=== PATIENT | female | born 1980 | race Hispanic/Latino ===

== ENCOUNTER 2017-07-02 14:05 | Emergency (ER) | payer BC ==
[2017-07-02 14:34] VITALS: BMI 21.4
[2017-07-02 14:38] VITALS: RESP 19; TEMP 98.1; O2SAT 99
--- NOTE | 2017-07-02 15:11 | ED PDOC ---
Arrival/HPI - General Chief Complaint: Abdominal Pain Time Seen by Provider: 07/02/17 14:57 Historian: Patient - History of Present Illness Narrative History of Present Illness (Text): 07/02/17 14:59 A 37 year old female with presents to the emergency department complaining of chronic complaints since delivering 3rd child 6 months ago. She reports that since that time she has had episodes of urinary incontinence when straining. She also feels like "feels like something is falling out", described as her bladder feels like it is sinking down. She reports that today she saw blood when wiping after urinating so she came to the ED. She reports frequency and hesistancy today. She is also complaining of conjunctival injection to L eye after scratching it [place]. Denies abdominal pain. Denies flank pain. Patient denies any fever, chills, nausea, vomiting, diarrhea, dysuria, back pain, chest pain, shortness of breath or any other complaints. 07/02/17 20:48 Time/Duration: Other (few months) Symptom Course: Unchanged Quality: Other Context: Home Past Medical History - Provider Review Nursing Documentation Reviewed: Yes - Infectious Disease Hx of Infectious Diseases: None - Tetanus Immunization Tetanus Immunization: Unknown - Past Medical History Past Medical History: No Previous - Cardiac Hx Cardiac Disorders: No - Pulmonary Hx Respiratory Disorders: No - Neurological Hx Neurological Disorder: No - HEENT Hx HEENT Disorder: No - Renal Hx Renal Disorder: No - Endocrine/Metabolic Hx Endocrine Disorders: No - Hematological/Oncological Hx Blood Disorders: No - Integumentary Hx Dermatological Disorder: No - Musculoskeletal/Rheumatological Hx Musculoskeletal Disorders: Yes Hx Falls: Yes - Gastrointestinal Hx Bowel Surgery: No - Genitourinary/Gynecological Hx Genitourinary Disorders: Yes Other/Comment: 2 X Ectopic - Psychiatric Hx Anxiety: Yes Hx Physical Abuse: No Hx Substance Use: Yes - Surgical History Hx Section: Yes (3x) Other/Comment: Ectopic - Anesthesia Hx Anesthesia: Yes Hx Anesthesia Reactions: No Hx Malignant Hyperthermia: No - Suicidal Assessment Feels Threatened In Home Enviroment: No Family/Social History - Physician Review Nursing Documentation Reviewed: Yes Family/Social History: No Known Family HX Smoking Status: Current Some Days Smoker Hx Alcohol Use: No Hx Substance Use: Yes Substance used: weed Hx Substance Use Treatment: No Allergies/Home Meds Allergies/Adverse Reactions: Allergies pcn Allergy (Uncoded 07/02/17 14:34) RASH Home Medications: Home Meds Medication Instructions Recorded Confirmed clonazePAM [Klonopin] 0 mg PO TID 07/02/17 07/02/17 Review of Systems - Physician Review All systems were reviewed & negative as marked: Yes - Review of Systems Constitutional: absent: Fevers, Night Sweats Eyes: Eye Pain. absent: Vision Changes, Photophobia Respiratory: absent: SOB Cardiovascular: absent: Chest Pain Gastrointestinal: absent: Abdominal Pain, Diarrhea, Nausea, Vomiting Genitourinary Female: Frequency, Hematuria, Urine Output Changes, Other ( urinary incontinence (occasional and chronic)). absent: Dysuria, Vaginal Bleeding Musculoskeletal: absent: Arthralgias, Back Pain Neurological: absent: Headache Physical Exam Vital Signs Reviewed: Yes Vital Signs Temp Pulse Resp BP Pulse Ox 07/02/17 19:24 67 19 131/78 99 07/02/17 14:37 98.1 F 73 19 117/78 99 Temperature: Afebrile Blood Pressure: Normal Pulse: Regular Respiratory Rate: Normal Appearance: Positive for: Well-Appearing, Non-Toxic, Comfortable Pain Distress: None Mental Status: Positive for: Alert and Oriented X 3 - Systems Exam Head: Present: Atraumatic, Normocephalic Pupils: Present: PERRL Extroacular Muscles: Present: EOMI Conjunctiva: Present: Injected (L), Other (fluorscein stain positive for corneal abrasion at 3 and 9 oclock) Mouth: Present: Moist Mucous Membranes Neck: Present: Normal Range of Motion Respiratory/Chest: Present: Clear to Auscultation, Good Air Exchange. No: Respiratory Distress, Accessory Muscle Use Cardiovascular: Present: Regular Rate and Rhythm, Normal S1, S2. No: Murmurs Abdomen: Present: Normal Bowel Sounds. No: Tenderness, Distention, Peritoneal Signs Back: Present: Normal Inspection Upper Extremity: Present: Normal Inspection. No: Cyanosis, Edema Lower Extremity: Present: Normal Inspection. No: Edema Neurological: Present: GCS=15, CN II-XII Intact, Speech Normal Skin: Present: Warm, Dry, Normal Color. No: Rashes Psychiatric: Present: Alert, Oriented x 3, Normal Insight, Normal Concentration Medical Decision Making ED Course and Treatment: 07/02/17 14:59 Impression: A 37 year old female with urinary incontinence and suprapubic discomfort. Patient notes "feeling like something is falling out". New complaint of hesistancy and frequency and hematuria. Corneal abrasion on exam. Differential Diagnosis included but are not limited to: Bladder prolapse vs. vs uti Plan: -- Pelvis ultrasound -- Urinalysis -- Reassess and disposition Progress Notes: Report Date : 07/02/2017 17:17:39 Procedure: Pelvis ultrasound Dictator : LUIS MONDRAGON MD IMPRESSION: Unremarkable examination. No sonographic evidence of bladder prolapse. 07/02/17 17:19 UA shows leukocytes, nitrates, wbc and rbcs. Poc negative. Symptoms more consistent with uti but due to rbcs would r/o renal colic. Patient denies abdominal pain, flank pain, fever, or any pain. Patient refusing to stay for labs or CT and reports that she will return with any worsening symptoms. Will dc with antibiotics and drops for corneal abrasion. Instructed not to wear contacts. Spoke to patient at length about importance of following up with PMD for chronic complaints since childbirth to evaluate further. - Lab Interpretations Lab Results: Lab Results 07/02/17 15:20: Urine Color Yellow, Urine Appearance Sl cloudy, Urine pH 5.5, Ur Specific Christiana >= 1.030, Urine Protein >=300 H, Urine Glucose (UA) Negative , Urine Ketones Trace H, Urine Blood Large H, Urine Nitrate Positive H, Urine Bilirubin Moderate H, Urine Urobilinogen 1.0 H, Ur Leukocyte Esterase Small H, Urine RBC Tntc, Urine WBC Tntc, Ur Epithelial Cells 6 - 8, Urine Bacteria Many - RAD Interpretation Radiology Orders: 07/02/17 14:58 Bladder [PELVIS ULTRASOUND] [US] Routine 07/02/17 17:41 ABD & PELVIS W/O PO OR IV CONT [CT] Stat - Medication Orders Current Medication Orders: Discontinued Medications Nitrofurantoin Macrocrystals (Macrobid) 100 mg PO STAT STA Stop: 07/02/17 17:26 Last Admin: 07/02/17 19:00 Dose: 100 mg - Scribe Statement The provider has reviewed the documentation as recorded by the Wenceslaoibmaria del carmen Guzmán Provider Scribe Attestation: All medical record entries made by the Scribe were at my direction and personally dictated by me. I have reviewed the chart and agree that the record accurately reflects my personal performance of the history, physical exam, medical decision making, and the department course for this patient. I have also personally directed, reviewed, and agree with the discharge instructions and disposition. Disposition/Present on Arrival - Present on Arrival Any Indicators Present on Arrival: No History of DVT/PE: No History of Uncontrolled Diabetes: No Urinary Catheter: No History of Decub. Ulcer: No History Surgical Site Infection Following: Abdominal Surgery - Disposition Have Diagnosis and Disposition been Completed?: Yes Diagnosis: UTI (urinary tract infection), Corneal abrasion due to contact lens Disposition: AGAINST MEDICAL ADVICE Disposition Time: 17:21 Patient Plan: Discharge Condition: GOOD Discharge Instructions (ExitCare): Phenazopyridine (By mouth), Urinary Tract Infection in Women (ED), Corneal Abrasion (ED) Additional Instructions: Follow up with PMD within 2 days. Follow-up with tow mate. Take full course of antibiotics. Ensure hematuria resolves. Return to ED if condition worsens. Prescriptions: Moxifloxacin HCl [Moxifloxacin] 2 drop OS Q6 #1 bottle Nitrofurantoin Macrocrystals [Macrobid] 100 mg PO BID #10 cap Phenazopyridine HCl [Pyridium] 100 mg PO TID #30 tablet Referrals: PCP,NO [Primary Care Provider] - Follow up with primary Forms: [employer] (Yoruba)
[2017-07-02 15:30] LABS: PH,URINE 5.5 (4.7-8.0); URINE BILIRUBIN MODERATE (NEGATIVE); URINE BLOOD LARGE (NEGATIVE); URINE GLUCOSE (UA) NEGATIVE (NEGATIVE); URINE KETONE TRACE mg/dL (NEGATIVE); URINE LEUKOCYTE ESTERASE SMALL Leu/uL (NEGATIVE); URINE PROTEIN >=300 mg/dL (<30 mg/dL)
[2017-07-02 15:31] LABS: URINE APPEARANCE SL CLOUDY (CLEAR); URINE COLOR YELLOW (YELLOW)
[2017-07-02 15:54] LABS: URINE BACTERIA MANY (NEG); URINE RBC TNTC /hpf (0-2); URINE WBC TNTC /hpf (0-6)
--- NOTE | 2017-07-02 17:23 | US ---
HISTORY: suprapubic pain, feeling of bladder "coming out" COMPARISON: None available. TECHNIQUE: Transabdominal FINDINGS: UTERUS: Measures 8.9 x 4.3 x 4.9 cm. Normal in size and appearance. No fibroid or other mass lesion seen. ENDOMETRIUM: Measures 7 mm in diameter. Unremarkable. CERVIX: No cervical abnormality identified. RIGHT OVARY: Measures 3.8 x 1.6 x 3.8 cm. No solid mass. Normal flow. LEFT OVARY: Measures 4.4 x 2.9 x 3.5 cm. No solid mass. Normal flow. FREE FLUID: No significant free fluid noted. OTHER FINDINGS: No gross evidence of bladder prolapse on this examination. However, this is not considered to be a sensitive examination for evaluation of bladder prolapse. IMPRESSION: Unremarkable examination. No sonographic evidence of bladder prolapse. See above.
[2017-07-02 19:25] VITALS: BP 131/78; PULSE 67
== END 2017-07-02 19:24 | disposition left against medical advice (07) ==
LOC: ED 14:05
DX: N39.0 Urinary tract infection, site not specified (principal); H18.822 Corneal disorder due to contact lens, left eye

== ENCOUNTER 2017-09-07 17:27 | Emergency (ER) | payer BC ==
--- NOTE | 2017-09-07 17:29 | ED PDOC ---
Arrival/HPI - General Time Seen by Provider: 09/07/17 17:29 Historian: Patient - History of Present Illness Narrative History of Present Illness (Text): 09/07/17 17:29 37 y/o female, pmh including pylonephritis, penicillin allergy, chronic smoker, c/o productive coughing x 1 week. Pt. stated that she has been coughing with runny nose x 1 week, no recent traveling for the past 4 weeks, no chest pain or shortness of breath, no pleuritic pain, no palpitation, no leg swelling. Pt. stated that she tripped over the furniture about 2 days ago with no head or neck /back injury, fall on the rt. hand 5th digit with the pain and pain on the rt. rib chest from the fall, no hematuria, no dizziness, no bruising or ecchymosis on the chest cavity, no abdominal pain, no rash, no other medical or psychological complaints. Past Medical History - Provider Review Nursing Documentation Reviewed: Yes - Infectious Disease Hx of Infectious Diseases: None - Tetanus Immunization Tetanus Immunization: Unknown - Past Medical History Past Medical History: No Previous - Cardiac Hx Cardiac Disorders: No - Pulmonary Hx Respiratory Disorders: No - Neurological Hx Neurological Disorder: No - HEENT Hx HEENT Disorder: No - Renal Hx Renal Disorder: No - Endocrine/Metabolic Hx Endocrine Disorders: No - Hematological/Oncological Hx Blood Disorders: No - Integumentary Hx Dermatological Disorder: No - Musculoskeletal/Rheumatological Hx Musculoskeletal Disorders: Yes Hx Falls: Yes - Gastrointestinal Hx Bowel Surgery: No - Genitourinary/Gynecological Hx Genitourinary Disorders: Yes Other/Comment: 2 X Ectopic - Psychiatric Hx Anxiety: Yes Hx Physical Abuse: No Hx Substance Use: Yes - Surgical History Hx Section: Yes (3x) Other/Comment: Ectopic - Anesthesia Hx Anesthesia: Yes Hx Anesthesia Reactions: No Hx Malignant Hyperthermia: No - Suicidal Assessment Feels Threatened In Home Enviroment: No Family/Social History - Physician Review Nursing Documentation Reviewed: Yes Family/Social History: Unknown Family HX Smoking Status: Current Some Days Smoker Hx Alcohol Use: No Hx Substance Use: Yes Substance used: weed Hx Substance Use Treatment: No Allergies/Home Meds Allergies/Adverse Reactions: Allergies pcn Allergy (Uncoded 09/07/17 17:37) RASH Home Medications: Home Meds Medication Instructions Recorded Confirmed clonazePAM [Klonopin] 0 mg PO TID 07/02/17 09/07/17 Review of Systems - Review of Systems Constitutional: absent: Fatigue, Fevers Eyes: absent: Vision Changes ENT: Rhinorrhea Respiratory: Cough, Sputum. absent: SOB, Wheezing Cardiovascular: absent: Chest Pain Gastrointestinal: absent: Abdominal Pain, Nausea, Vomiting Genitourinary Female: absent: Hematuria, Vaginal Bleeding Musculoskeletal: Arthralgias, Myalgias. absent: Back Pain, Neck Pain, Joint Swelling Skin: absent: Rash, Pruritis, Skin Lesions Neurological: absent: Headache, Dizziness Endocrine: absent: Diaphoresis Psychiatric: absent: Anxiety, Depression, Suicidal Ideation Physical Exam Vital Signs Reviewed: Yes Vital Signs Temp Pulse Resp BP Pulse Ox 09/07/17 17:40 98.2 F 84 18 120/73 100 Temperature: Afebrile Blood Pressure: Normal Pulse: Regular Respiratory Rate: Normal Appearance: Positive for: Well-Appearing, Non-Toxic, Comfortable Pain Distress: Moderate Mental Status: Positive for: Alert and Oriented X 3 - Systems Exam Head: Present: Atraumatic, Normocephalic Pupils: Present: PERRL Extroacular Muscles: Present: EOMI Conjunctiva: Present: Normal Ears: Present: NORMAL TM, Normal Canal. No: Erythema Mouth: Present: Moist Mucous Membranes Pharnyx: No: ERYTHEMA, EXUDATE, TONSILS ENLARGED Neck: Present: Normal Range of Motion Respiratory/Chest: Present: Clear to Auscultation, Good Air Exchange, Tender to Palpation (mild +ttp on the rt. posterior lower rib cage region with no ecchymosis or signs of trauma. ), Other (no flank or abdmoinal discoloration. ) . No: Respiratory Distress, Accessory Muscle Use, Wheezes, Decreased Breath Sounds, Rales, Retracting, Rhonchi, Tachypneic Cardiovascular: Present: Regular Rate and Rhythm, Normal S1, S2. No: Murmurs Abdomen: Present: Normal Bowel Sounds, Other (no ecchymosis ). No: Tenderness, Distention, Peritoneal Signs, Rebound, Guarding, Mass/Organomegaly Back: Present: Normal Inspection. No: CVA Tenderness, Midline Tenderness, Paraspinal Tenderness, Pain with Leg Raise, Decubitus Ulcer Upper Extremity: Present: Normal Inspection, Other (Rt. hand: no tenderness or swelling on the rt. hand 5th digit or any digits, skin intact, no laceration or abrasion, FROM without limitation, sensation intact, motor 5/5, +radial pulse, capillary refill< 2 seconds, neurovascular intact. ). No: Cyanosis, Edema Lower Extremity: Present: Normal Inspection. No: Edema Neurological: Present: GCS=15, Speech Normal, Motor Func Grossly Intact, Gait Normal, Memory Normal Skin: Present: Warm, Dry, Normal Color. No: Rashes Psychiatric: Present: Alert, Oriented x 3, Normal Insight, Normal Concentration Medical Decision Making ED Course and Treatment: 09/07/17 17:53 -Urine hcg negative. -cxr/rt. rib xray -motrin and percocet -observe and reassess 09/07/17 19:00 -Chest xray and rt. rib xray: no acute displaced rib fracture, no acute disease in the visualized portion of the chest -Pain improved, will discharge home. -Discharge home with azithromycin, prednisone, albuterol MDI, tessalon, naproxen , stay hydrated, bed rest, follow up with your own pmd and orthopedic/ formula technician within 2 days, return to the ER for any new or worsening signs or symptoms. - RAD Interpretation Radiology Orders: 09/07/17 17:44 CHEST TWO VIEWS (PA/LAT) [RAD] Stat RIBS RIGHT [RAD] Stat Chest xray: no acute cardiopulmonary disease Rt. Ribs Xray: FINDINGS: Heart and Lungs: Heart size is normal. Mediastinal and hilar contours are unremarkable. Lungs are clear. Pleural space: There is no pneumothorax. There is no effusion. Bones/joints: There are no acute displaced rib fractures. Visualized osseous structures are unremarkable IMPRESSION: No acute displaced rib fracture, no acute disease in the visualized portion of the chest Thank you for allowing us to participate in the care of your patient. Dictated and Authenticated by: Jojo Sanders MD 09/07/2017 6:51 PM Eastern Time ([place] & [place]) Senior Communications Specialist: Radiologist - Medication Orders Current Medication Orders: Discontinued Medications Ibuprofen (Motrin Tab) 600 mg PO STAT STA Stop: 09/07/17 17:45 Last Admin: 09/07/17 17:44 Dose: 600 mg MAR Pain/Vitals Document 09/07/17 17:44 AD (Rec: 09/07/17 18:31 AD [facility] [id number]) Pain Reassessment Is This A Pain ReAssessment? No Presence of Pain Presence of Pain Yes Pain Scale Used Pain Scale Used Numeric Location Intensity 8 Scale Used Numeric Oxycodone/Acetaminophen (Percocet 5/325 Mg Tab) 1 tab PO STAT STA Stop: 09/07/17 17:45 Last Admin: 09/07/17 17:44 Dose: 1 tab MAR Pain Assessment Document 09/07/17 17:44 AD (Rec: 09/07/17 18:31 AD [facility] [id number]) Pain Reassessment Is this a pain reassessment? 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 Disposition/Present on Arrival - Present on Arrival Any Indicators Present on Arrival: No History of DVT/PE: No History of Uncontrolled Diabetes: No Urinary Catheter: No History of Decub. Ulcer: No History Surgical Site Infection Followin - Disposition Have Diagnosis and Disposition been Completed?: Yes Diagnosis: Arthralgia, Myalgia, Accidental fall, Bronchitis Disposition: HOME/ ROUTINE Disposition Time: 19:01 Patient Plan: Discharge Condition: IMPROVED Additional Instructions: -Discharge home with azithromycin, prednisone, albuterol MDI, tessalon, naproxen , stay hydrated, bed rest, follow up with your own pmd and orthopedic/ formula technician within 2 days, return to the ER for any new or worsening signs or symptoms. Prescriptions: Albuterol HFA [Ventolin HFA 90 mcg/actuation (8 g)] 2 puff IH [id number] #1 dev Azithromycin 250 mg PO DAILY #6 tab Benzonatate [Tessalon Perles] 100 mg PO TID PRN #30 sgl PRN Reason: Other Naproxen 500 mg PO BID #20 tab predniSONE [Prednisone] 2 tab PO DAILY #10 tab Referrals: [facility] at [facility] [Outside] - Follow up with primary Mary Jason MD [Staff Provider] - Follow up with primary Forms: WORK NOTE
[2017-09-07 17:37] VITALS: BMI 21.7
[2017-09-07 17:41] VITALS: BP 120/73; PULSE 84; RESP 18; TEMP 98.2; O2SAT 100
[2017-09-07] MEDS ORDERED: Oxycodone/Acetaminophen 5/325 mg Tab PO STA (17:44)
--- NOTE | 2017-09-07 18:51 | RAD ---
EXAM: XR Right Ribs, 2 Views EXAM DATE/TIME: 09/07/2017 5:44 PM CLINICAL HISTORY: 37 years old, female; Injury or trauma; Fall; Initial encounter; Rib area; Blunt trauma (contusions or hematomas); Additional info: Rt. Rib injury posterio aspect S/P fall TECHNIQUE: Frontal and oblique views of the right ribs. COMPARISON: There are no prior studies for comparison. FINDINGS: Heart and Lungs: Heart size is normal. Mediastinal and hilar contours are unremarkable. Lungs are clear. Pleural space: There is no pneumothorax. There is no effusion. Bones/joints: There are no acute displaced rib fractures. Visualized osseous structures are unremarkable IMPRESSION: No acute displaced rib fracture, no acute disease in the visualized portion of the chest
--- NOTE | 2017-09-08 08:43 | RAD ---
HISTORY: cough x 1 week, rt. rib injury x 2 days. COMPARISON: Frontal chest 10/17/2014. TECHNIQUE: Chest PA and lateral FINDINGS: LUNGS: No active pulmonary disease. PLEURA: No significant pleural effusion identified. No pneumothorax apparent. CARDIOVASCULAR: Normal. OSSEOUS STRUCTURES: No significant abnormalities. VISUALIZED UPPER ABDOMEN: Normal. OTHER FINDINGS: None. IMPRESSION: No interval acute cardiopulmonary disease appreciated.
== END 2017-09-07 19:20 | disposition home or self-care (01) ==
LOC: ED 17:27
DX: M25.50 Pain in unspecified joint (principal); M79.1 Myalgia; J40 Bronchitis, not specified as acute or chronic; W19.XXXA Unspecified fall, initial encounter

== ENCOUNTER 2018-09-22 22:21 | Emergency (ER) | payer BC ==
[2018-09-22 22:44] VITALS: BMI 19.0
[2018-09-22] MEDS ORDERED: Sodium Chloride 0.9% 1,000 ML IV STA (22:49)
--- NOTE | 2018-09-22 22:54 | ED PDOC ---
Arrival/HPI - General Chief Complaint: Flu-like Symptoms Time Seen by Provider: 09/22/18 22:22 Historian: Patient - History of Present Illness Narrative History of Present Illness (Text): 09/22/18 22:49 38 year old female smoker, whose past medical history includes ectopic , and 3 c-sections, presents to the emergency department with cough, fever, and weakness, for 1 week. Patient states her children were sick with u pper respiratory infections, and after they got better, she got sick. Patient states she has been coughing up a lot of mucous. Patient informs of associated vomiting and diarrhea. Patient denies any headache, dizziness, abdominal pain, back pain, neck pain, urinary/bowel changes, or any other complaint. Time/Duration: 1 week Symptom Onset: Gradual Symptom Course: Unchanged Context: Home Past Medical History - Provider Review Nursing Documentation Reviewed: Yes - Infectious Disease Hx of Infectious Diseases: None - Tetanus Immunization Tetanus Immunization: Unknown - Past Medical History Past Medical History: No Previous - Cardiac Hx Cardiac Disorders: No - Pulmonary Hx Respiratory Disorders: No - Neurological Hx Neurological Disorder: No - HEENT Hx HEENT Disorder: No - Renal Hx Renal Disorder: No - Endocrine/Metabolic Hx Endocrine Disorders: No - Hematological/Oncological Hx Blood Disorders: Yes Hx Anemia: Yes (Iron Deficiency) - Integumentary Hx Dermatological Disorder: No - Musculoskeletal/Rheumatological Hx Musculoskeletal Disorders: Yes Hx Falls: Yes - Gastrointestinal Hx Bowel Surgery: No - Genitourinary/Gynecological Hx Genitourinary Disorders: Yes Other/Comment: 2 X Ectopic - Psychiatric Hx Anxiety: Yes Hx Physical Abuse: No Hx Substance Use: Yes - Surgical History Hx Section: Yes (3x) Other/Comment: Ectopic - Anesthesia Hx Anesthesia: Yes Hx Anesthesia Reactions: No Hx Malignant Hyperthermia: No - Suicidal Assessment Feels Threatened In Home Enviroment: No Family/Social History - Physician Review Nursing Documentation Reviewed: Yes Family/Social History: No Known Family HX Smoking Status: Light Smoker < 10 Cigarettes Daily Hx Alcohol Use: No Hx Substance Use: Yes Substance used: weed Hx Substance Use Treatment: No Allergies/Home Meds Allergies/Adverse Reactions: Allergies Penicillins Allergy (Verified 09/22/18 22:40) ANAPHYLAXIS Home Medications: Home Meds Medication Instructions Recorded Confirmed Clonazepam [Klonopin] 0.5 mg PO TID PRN 09/22/18 09/22/18 Review of Systems - Physician Review All systems were reviewed & negative as marked: Yes - Review of Systems Constitutional: Fatigue, Fevers Respiratory: Cough, Sputum Gastrointestinal: Diarrhea, Vomiting. absent: Abdominal Pain Genitourinary Female: absent: Urine Output Changes Musculoskeletal: absent: Back Pain, Neck Pain Neurological: absent: Headache, Dizziness Physical Exam - Physical Exam Narrative Physical Exam (Text): 09/22/18 22:55 Gen: VS reviewed, alert, well developed, well nourished, nontoxic, mild distress. ENT: Postnasal drip. Eye: EOMI, PERRL. Neck: no JVD, supple, no adenopathy. CV: regular rate, regular rhythm, no rubs, no murmur, no gallops, S1, S2, pulses equal and strong. Pulm: no distress, clear to auscultation, no wheeze, no rhonchi, breath sounds equal, no rales. Abd: soft, nontender, no guarding, no rebound, no rigidity, normal bowel sounds. Ext: no edema. Skin: good color, no rash, no cyanosis. Psych: responds appropriately to questions, normal affect. Neuro: oriented x 3, CN2-12 intact grossly, motor intact, sensation intact. Vital Signs Reviewed: Yes Vital Signs Temp Pulse Resp BP Pulse Ox 09/22/18 22:41 99.3 F 88 18 122/79 98 Temperature: Afebrile Blood Pressure: Normal Pulse: Regular Respiratory Rate: Normal Appearance: Positive for: Well-Appearing, Non-Toxic, Comfortable Pain Distress: None Mental Status: Positive for: Alert and Oriented X 3 Medical Decision Making ED Course and Treatment: 09/22/18 22:57 Impression: 38 year old female presents with fever, cough, diarrhea. Plan: -- Labs -- Chest X-ray -- Rapid flu test -- Reassess and disposition Prior Visits: Notes and results from previous visits were reviewed. Progress Notes: 09/23/18 01:21 patient seen generalized constitutional symptoms. cxr neg for pneumonia and flu negative. patient is clinically dehydrated from the diarrhea and was given ivf for volume repletion. patient remained stable throughout ED course. patient informed to follow up with pcp as soon as possible. patient reported violent coughing spells are consistent with the observed postnasal drip-recommend pseudophed. - RAD Interpretation Narrative RAD Interpretations (Text): 09/23/18 00:56 cxr my read: no focal infiltrate, n ptx, no cardiomegaly Heat Treating Furnace Tender: ED Physician - Scribe Statement The provider has reviewed the documentation as recorded by the Wenceslaoibmaria del carmen Boss Provider Scribe Attestation: All medical record entries made by the Scribe were at my direction and personally dictated by me. I have reviewed the chart and agree that the record accurately reflects my personal performance of the history, physical exam, medical decision making, and the department course for this patient. I have also personally directed, reviewed, and agree with the discharge instructions and disposition. Disposition/Present on Arrival - Present on Arrival Any Indicators Present on Arrival: No History of DVT/PE: No History of Uncontrolled Diabetes: No Urinary Catheter: No History of Decub. Ulcer: No History Surgical Site Infection Following: None - Disposition Have Diagnosis and Disposition been Completed?: Yes Diagnosis: Viral syndrome, Postnasal drip Disposition: HOME/ ROUTINE Disposition Time: 01:23 Patient Plan: Discharge Condition: STABLE Discharge Instructions (ExitCare): Viral Syndrome (DC), Cough, Adult (DC) Additional Instructions: Return for any new or worsening symptoms. Follow up with your primary care doctor-call tomorrow to make an appointment. Stay well hydrated (water). QUAN ROMERO, thank you for letting us take care of you today. Your provider was Dr. Devendra Kirkpatrick and you were treated for cough and diarrhea. The emergency medical care you received today was directed at your acute symptoms. If you were prescribed any medication, please fill it and take as directed. It may take several days for your symptoms to resolve. Return to the Emergency Department if your symptoms worsen, do not improve, or if you have any other problems. Please contact your doctor or call one of the physicians/clinics you have been referred to that are listed on the Patient Visit Information form that is included in your discharge packet. Bring any paperwork you were given at discharge with you along with any medications you are taking to your follow up visit. Our treatment cannot replace ongoing medical care by a primary care provider outside of the emergency department. Thank you for allowing the [facility] team to be part of your care today. If you had an X-Ray or CT scan: A Radiologist will review the ED reading if any change in treatment is needed we will contact you. If you had a blood, urine, or wound culture: It will take several days for the results, if any change in treatment is needed we will contact you. If you had an STI test: It will take 48 hours for the results. Please call after 1 week if you have not heard back. Prescriptions: Pseudoephedrine [Sudafed Oral Syrup] 30 mg PO QID #20 dose Referrals: Mercy Corea MD [Primary Care Provider] - Follow up with primary Forms: [employer] (Georgian), WORK NOTE
[2018-09-22 22:59] VITALS: PULSE 70; TEMP 98.5
[2018-09-22 23:21] LABS: BASO # 0.04 K/mm3 (0.0-2.0); BASO % 0.3 % (0.0-3.0); EOS # 0.1 (0.0-0.7); EOS % 0.7 % (1.5-5.0); GRAN # 11.67 (1.4-6.5); GRAN % 73.4 % (50.0-68.0); HEMOGLOBIN 14.2 g/dL (12.0-16.0); LYMPH # 2.9 (1.2-3.4); LYMPH % 18.2 % (22.0-35.0); MEAN CELL VOLUME 90.1 fl (80.0-105.0); MEAN CORPUSCULAR HEMOGLOBIN 31.1 pg (25.0-35.0); MEAN CORPUSCULAR HGB CONC 34.5 g/dl (31.0-37.0); MEAN PLATELET VOLUME 10.4 fl (7.0-11.0); MONO # 1.2 (0.1-0.6); MONO % 7.4 % (1.0-6.0); RBC 4.56 10^6/uL (3.5-6.1); RED CELL DISTRIBUTION WIDTH 13.6 % (11.5-14.5); WHITE BLOOD COUNT 15.9 10^3/uL (4.5-11.0)
[2018-09-22 23:25] LABS: ALB/GLOB RATIO 0.9 (1.1-1.8); ALBUMIN 4.3 g/dL (3.0-4.8); ALT/SGPT 18 U/L (7-56); AST/SGOT 24 U/L (14-36); BLOOD UREA NITROGEN 5 mg/dL (7-21); GFR NON-AFRICAN AMERICAN > 60
[2018-09-23 01:41] VITALS: BP 107/77; RESP 17; O2SAT 97
--- NOTE | 2018-09-23 07:58 | RAD ---
Date of service: 09/22/2018 HISTORY: cough, pneumonia COMPARISON: No prior. TECHNIQUE: Chest PA and lateral FINDINGS: LUNGS: No active pulmonary disease. PLEURA: No significant pleural effusion identified. No pneumothorax apparent. CARDIOVASCULAR: No aortic atherosclerotic calcification present. Normal cardiac size. No pulmonary vascular congestion. OSSEOUS STRUCTURES: No significant abnormalities. VISUALIZED UPPER ABDOMEN: Normal. OTHER FINDINGS: None. IMPRESSION: No active disease.
== END 2018-09-23 01:39 | disposition home or self-care (01) ==
LOC: ED 22:21
DX: B34.9 Viral infection, unspecified (principal); R09.82 Postnasal drip; D50.9 Iron deficiency anemia, unspecified; F17.210 Nicotine dependence, cigarettes, uncomplicated
CPT/HCPCS: 71046; 80053; 85025; 87804; 96360; 99283; J7030